=== PATIENT | male | born 1960 | race Caucasian/White ===

== ENCOUNTER → 2017-05-15 | Outpatient (CLI) | payer OTHER, BC ==
[~2017-05-15] MED LIST: ALLOPURINOL 30300 M2 PO; AMARYL4 MG PO; CARVEDILOL12.5 MG PO; CARVEDILOL25 MG PO; GLIMEPIRIDE PO; GLUCOPHAGE1000 MG PO; KLOR-CON20 ME1 PO; LASIX 40 MG TAB40 M2 PO; LISINOPRIL10 MG PO; LYRICA 75 MG CA75 MG PO; NEURONTIN 300300 M1 PO; OMEPRAZOLE40 MG PO; PRANDIN1 MG PO; SORINE 80 MG TA80 M1 PO; SORINE 80 MG TA80 MG PO; XARELTO10 MG PO
== END ==
LOC: RAD 13:08
DX: R06.09 Other forms of dyspnea (principal); R60.9 Edema, unspecified

== ENCOUNTER → 2018-04-23 | Outpatient (CLI) | payer OTHER | LOC: CAT 09:41 | DX: I85.00 Esophageal varices without bleeding (principal); R16.1 Splenomegaly, not elsewhere classified; R07.9 Chest pain, unspecified; R91.8 Other nonspecific abnormal finding of lung field ==